=== PATIENT | female | born 1970 | race Caucasian/White ===

== ENCOUNTER 2022-05-18 14:48 | Outpatient (CLI) | payer OTHER, SELFPAY ==
--- NOTE | 2022-05-18 15:00 | CRLHL7_ITS ---
For Patients: As a result of the Century Cures Act, medical imaging exams and procedure reports are released immediately into your electronic medical record. You may view this report before your referring provider. If you have questions, please contact your health care provider. BILATERAL SCREENING MAMMOGRAM WITH COMPUTER-AIDED DETECTION TECHNIQUE: CC and MLO views were obtained. These mammographic images have been obtained using full-field digital technique. These mammographic images were interpreted with the benefit of computer-aided detection. COMPARISON FILM: 04/14/21, 04/07/20, 03/12/19. FINDINGS: The breasts are heterogeneously dense, which may obscure small masses IMPRESSION: There is no radiographic evidence for malignancy. ASSESSMENT: BI-RADS Category 1: Negative RECOMMENDATION: Routine screening mammogram in 1 year. A lay language report of this examination will be provided to the patient. Hamlet Quinn M.D. Diagnostic Radiologist [email or web address] ARGENIS/Dictated by: Hamlet Quinn MD @ 05/19/2022 8:17:00 AM (Electronically Signed)
== END 2022-05-18 14:49 | disposition home or self-care (01) ==
LOC: MAMMO 14:49
PROVIDERS: PCP Family Medicine; Visit Provider Physician Assistant
DX: Z12.31 Encounter for screening mammogram for malignant neoplasm of breast (principal); R92.2 Inconclusive mammogram
CPT/HCPCS: 77067

== ENCOUNTER 2023-05-10 10:54 | Outpatient (CLI) | payer OTHER, SELFPAY | END 2023-05-10 10:55 | disposition home or self-care (01) | PROVIDERS: PCP Family Medicine; Visit Provider Physician Assistant | DX: Z01.419 Encounter for gynecological examination (general) (routine) without abnormal findings (principal); M25.50 Pain in unspecified joint; L65.9 Nonscarring hair loss, unspecified | CPT/HCPCS: 84443; 86039; 86140; 86431 ==

== ENCOUNTER 2023-06-26 16:10 | Outpatient (CLI) | payer OTHER, SELFPAY ==
--- NOTE | 2023-06-26 16:20 | CRLHL7_ITS ---
For Patients: As a result of the Century Cures Act, medical imaging exams and procedure reports are released immediately into your electronic medical record. You may view this report before your referring provider. If you have questions, please contact your health care provider. BILATERAL SCREENING MAMMOGRAM WITH COMPUTER-AIDED DETECTION TECHNIQUE: CC and MLO views were obtained. These mammographic images have been obtained using full-field digital technique. These mammographic images were interpreted with the benefit of computer-aided detection. COMPARISON FILM: 05/18/22, 04/14/21, 04/07/20 3D. FINDINGS: There are scattered areas of fibroglandular density IMPRESSION: There is no radiographic evidence for malignancy. ASSESSMENT: BI-RADS Category 2: Benign RECOMMENDATION: Routine screening mammogram in 1 year. A lay language report of this examination will be provided to the patient. Hamlet Quinn M.D. Diagnostic Radiologist [email or web address] ARGENIS/Dictated by: Hamlet Quinn MD @ 06/27/2023 8:55:00 AM (Electronically Signed)
== END 2023-06-26 16:11 | disposition home or self-care (01) ==
PROVIDERS: PCP Family Medicine; Visit Provider Physician Assistant
DX: Z12.31 Encounter for screening mammogram for malignant neoplasm of breast (principal)
CPT/HCPCS: 77063; 77067

== ENCOUNTER 2023-12-12 13:41 | Outpatient (REF) | payer OTHER, SELFPAY ==
[2023-12-12 14:41] LABS: Potassium* 3.9 mmol/L (3.6-5.1)
== END 2023-12-12 13:42 | disposition home or self-care (01) ==
LOC: NPINS 13:41
PROVIDERS: PCP Family Medicine; Visit Provider Dermatology
DX: L70.0 Acne vulgaris (principal)
CPT/HCPCS: 84132

== ENCOUNTER 2024-04-28 15:19 | Outpatient (CLI) | payer OTHER, SELFPAY | END 2024-04-28 15:20 | disposition home or self-care (01) | PROVIDERS: PCP Family Medicine; Visit Provider Family Medicine | DX: Z83.3 Family history of diabetes mellitus (principal); Z11.59 Encounter for screening for other viral diseases; F41.9 Anxiety disorder, unspecified; Z76.89 Persons encountering health services in other specified circumstances; L65.9 Nonscarring hair loss, unspecified | CPT/HCPCS: 80053; 80061; 84443; 86803 ==

== ENCOUNTER 2024-07-01 12:52 | Outpatient (CLI) | payer OTHER, SELFPAY ==
--- NOTE | 2024-07-01 13:00 | CRLHL7_ITS ---
For Patients: As a result of the Century Cures Act, medical imaging exams and procedure reports are released immediately into your electronic medical record. You may view this report before your referring provider. If you have questions, please contact your health care provider. BILATERAL SCREENING MAMMOGRAM WITH COMPUTER-AIDED DETECTION AND TOMOSYNTHESIS TECHNIQUE: CC and MLO views were obtained. These mammographic images have been obtained using full-field digital technique. These mammographic images were interpreted with the benefit of computer-aided detection. Breast Tomosynthesis was used in this interpretation. COMPARISON FILM: 06/26/23, 05/18/22, 04/14/21. FINDINGS: The breasts are heterogeneously dense, which may obscure small masses. IMPRESSION: There is no radiographic evidence for malignancy. ASSESSMENT: BI-RADS Category 2: Benign RECOMMENDATION: Routine screening mammogram in 1 year. A lay language report of this examination will be provided to the patient. Hamlet Quinn M.D. Diagnostic Radiologist [email or web address] SP/Dictated by: Hamlet Quinn MD @ 07/02/2024 8:54:00 AM (Electronically Signed)
== END 2024-07-01 12:53 | disposition home or self-care (01) ==
LOC: MAMMO 12:53
PROVIDERS: PCP Family Medicine; Visit Provider Physician Assistant
DX: Z12.31 Encounter for screening mammogram for malignant neoplasm of breast (principal); R92.333 Mammographic heterogeneous density, bilateral breasts
CPT/HCPCS: 77063; 77067

== ENCOUNTER 2024-07-17 13:49 | Outpatient (CLI) | payer OTHER, SELFPAY ==
--- NOTE | 2024-07-17 14:00 | CRLHL7_ITS ---
For Patients: As a result of the Cures Act, medical imaging exams and procedure reports are released immediately into your electronic medical record. You may view this report before your referring provider. If you have questions, please contact your health care provider. Indication: Chronic sinusitis Technique: Performed without IV contrast Comparison: 10/25/2021 Findings: Frontal sinuses: Clear. Ethmoid sinuses: Clear. Maxillary sinuses: Mild mucosal thickening within the inferior maxillary sinuses bilaterally. Small mucous retention cyst on the left measuring 5 millimeters. The maxillary sinus drainage pathways are patent on both sides. Sphenoid sinuses: Clear, including both sphenoethmoidal recesses. Nasal Cavity: Leftward curvature of the nasal septum. 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 Daisy bullosa left middle turbinate. No polyp. No TMJ abnormalities identified. The visualized portions of the orbits, intracranial contents and upper soft tissue neck are grossly negative. Impression: 1. Mild bilateral maxillary sinus disease. 2. Leftward curvature nasal septum with associated middle turbinate daisy bullosa. Please note that all CT scans at this facility use dose modulation, iterative reconstruction, and/or weight-based dosing when appropriate to reduce radiation dose to as low as reasonably achievable. Dictated by Hamlet Quinn MD @ 07/18/2024 1:10:20 PM (Electronically Signed)
== END 2024-07-17 13:50 | disposition home or self-care (01) ==
PROVIDERS: PCP Family Medicine; Visit Provider Otolaryngology
DX: J32.9 Chronic sinusitis, unspecified (principal); J32.0 Chronic maxillary sinusitis; J34.2 Deviated nasal septum
CPT/HCPCS: 70486

== ENCOUNTER 2025-04-21 13:48 | Outpatient (CLI) | payer OTHER, SELFPAY | END 2025-04-21 13:49 | disposition home or self-care (01) | LOC: NFLDREF 13:49 | PROVIDERS: PCP Family Medicine; Visit Provider Physician Assistant | DX: Z79.890 Hormone replacement therapy (principal) | CPT/HCPCS: 84270; 84402; 84403 ==

== ENCOUNTER 2025-06-03 17:12 | Outpatient (CLI) | payer OTHER, SELFPAY ==
--- NOTE | 2025-06-03 17:30 | CRLHL7_ITS ---
For Patients: As a result of the Century Cures Act, medical imaging exams and procedure reports are released immediately into your electronic medical record. You may view this report before your referring provider. If you have questions, please contact your health care provider. CLINICAL HISTORY: Pelvic pain/pressure COMPARISON: 04/09/2019 TECHNIQUE: 2D to-scale ultrasound. In addition, color Doppler and spectral Doppler analysis was performed of the pelvis using a transabdominal transvaginal approach. Transvaginal imaging performed to better visualize the endometrial stripe and ovaries. FINDINGS: Uterus measures 8.2 x 3.6 x 3.9 cm. Endometrium measures 7.9 millimeters. Trace amount of fluid is present in the endometrial canal. Post ablation changes noted. The right ovary measures 1.8 x 0.8 x 1.3 cm in size and the left ovary measures 1.8 x 1.1 x 1.4 cm. The ovaries demonstrate normal arterial and venous blood flow on color Doppler and spectral Doppler analysis. There are no suspicious fluid collections within the cul-de-sac. IMPRESSION: No ovarian torsion or adnexal mass. No excess pelvic free fluid. No uterine fibroid. Dictated by Hamlet Quinn MD @ 06/04/2025 9:24:10 AM (Electronically Signed)
== END 2025-06-03 17:13 | disposition home or self-care (01) ==
LOC: US 17:12
PROVIDERS: PCP Family Medicine; Visit Provider Physician Assistant
DX: R10.20 Pelvic and perineal pain unspecified side (principal)
CPT/HCPCS: 76830; 76856; 93976

== ENCOUNTER 2025-07-14 12:56 | Outpatient (CLI) | payer OTHER, SELFPAY ==
--- NOTE | 2025-07-14 13:00 | CRLHL7_ITS ---
For Patients: As a result of the Century Cures Act, medical imaging exams and procedure reports are released immediately into your electronic medical record. You may view this report before your referring provider. If you have questions, please contact your health care provider. INDICATION: BILATERAL SCREENING MAMMOGRAM, ASYMPTOMATIC 54 Y/O FEMALE COMPARISON: 07/01/2024, 06/26/2023, 05/18/2022 TECHNIQUE: Digital mammogram in CC and MLO projections including computer-aided detection (CAD) and tomosynthesis. BREAST COMPOSITION: The breasts are heterogeneously dense, which may obscure small masses. FINDINGS: No suspicious findings. ASSESSMENT: BI-RADS 2 Benign RECOMMENDATION: Annual screening mammogram. A lay language report of this examination will be provided to the patient. Dictated by: Hamlet Quinn MD @ 07/15/2025 11:53:37 (Electronically Signed)
== END 2025-07-14 12:57 | disposition home or self-care (01) ==
LOC: MAMMO 12:56
PROVIDERS: Visit Provider Physician Assistant
DX: Z12.31 Encounter for screening mammogram for malignant neoplasm of breast (principal); R92.333 Mammographic heterogeneous density, bilateral breasts
CPT/HCPCS: 77063; 77067

== ENCOUNTER 2025-07-24 09:35 | Outpatient (CLI) | payer OTHER, SELFPAY | END 2025-07-24 09:36 | disposition home or self-care (01) | LOC: NFLDREF 07-31 07:04 | PROVIDERS: Visit Provider Physician Assistant | DX: Z13.9 Encounter for screening, unspecified (principal) | CPT/HCPCS: 80053; 80061; 84403 ==